=== PATIENT | male | born 1985 | race Caucasian/White ===

== ENCOUNTER 2018-02-11 11:15 | Emergency (ER) | payer OTHER ==
[~2018-02-11] VITALS: Ht 172.7 cm; Wt 74.8 kg
[2018-02-11] MEDS ORDERED: IBUPROFEN600 MG PO (12:07)
[2018-02-11] MEDS ORDERED: NORCO 5-325 TA1 EACH PO (12:07)
== END 2018-02-11 12:10 | disposition home or self-care (01) ==
LOC: ED 11:15
DX: S93.521A Sprain of metatarsophalangeal joint of right great toe, initial encounter (principal); X58.XXXA Exposure to other specified factors, initial encounter; Y93.41 Activity, dancing; Y92.89 Other specified places as the place of occurrence of the external cause
CPT/HCPCS: 73630; 99283